=== PATIENT | male | born 1950 | race Caucasian/White ===

== ENCOUNTER 2016-05-15 08:03 | Emergency (ER) | payer OTHER ==
[~2016-05-15] VITALS: Ht 162.6 cm; Wt 68.5 kg
[~2016-05-15 08:03] MED LIST: CARI350T29 PO; IBUP-1542 PO; LISI20TA11 PO; LORA-441 PO; ONDA4TAB11 PO; ONDA4TAB8 PO; THIA100T10 PO
[2016-05-15 08:09] VITALS: Ht 162.6 cm; Wt 68.5 kg
[2016-05-15] MEDS ORDERED: ALPR0.5T PO (08:51)
--- NOTE | 2016-05-15 08:54 | ERD ---
ER Documentation Chief Complaint Date/Time DATE: 05/15/16 TIME: 08:53 Chief Complaint used meth yesterday and has anxiety HPI This is a 65-year-old male who says that he has anxiety long-standing is having anxiety attacks. The patient states that he does occasionally use methamphetamines. Says that his anxiety attacks or tremors and sense of impending doom and overwhelming feeling of smothering. He says he takes Xanax for these but he is out. No chest pain shortness of breath palpitations syncope headache dizziness ROS All systems reviewed and are negative except as per history of present illness. Medications Home Meds Active Scripts Alprazolam* (Xanax*) 0.5 Mg Tab, 0.5 MG PO TID, #20 TAB Prov:JOHANN ORTIZ DO 05/15/16 Ibuprofen* (Motrin*) 600 Mg Tab, 600 MG PO Q6H Y for PAIN AND OR ELEVATED TEMP, #30 TAB Prov:GORDY CORTES MD 04/22/16 Ondansetron (Zofran Odt) 4 Mg Tab.rapdis, 4 MG PO Q6, #10 Prov:SANGITA HINES DO 04/19/16 Lorazepam* (Ativan*) 0.5 Mg Tablet, 0.5 MG PO Q8, #5 TAB Prov:GAYATHRI VELASQUEZ PA-C 10/13/15 Reported Medications Carisoprodol* (Carisoprodol*) 350 Mg Tablet, 350 MG PO BID Y for MUSCLE SPASMS, TAB 04/19/16 Thiamine* (Thiamine*) 100 Mg Tablet, 100 MG PO DAILY, TAB 04/19/16 Lisinopril* (Lisinopril*) 20 Mg Tablet, 20 MG PO DAILY, TAB 08/17/14 Discontinued Scripts Ondansetron Hcl* (Zofran*) 4 Mg Tablet, 4 MG PO Q6H for NAUSEA AND/OR VOMITING, #10 TAB Prov:SANGITA HINES DO 04/19/16 Allergies Allergies: Coded Allergies: ketorolac (Verified Allergy, Unknown, 10/23/15) lidocaine (Verified Allergy, Unknown, HIVES, 10/23/15) phenobarbital (Verified Allergy, Unknown, 10/23/15) PMhx/Soc History of Surgery: No Anesthesia Reaction: No Hx Neurological Disorder: No Hx Respiratory Disorders: No Hx Cardiac Disorders: No Hx Psychiatric Problems: No Hx Miscellaneous Medical Probl: No Hx Alcohol Use: Yes Hx Substance Use: Yes (meth x1week relapse) Hx Tobacco Use: Yes (1pack/day) FmHx Family History: No coronary disease Physical Exam Vitals Vital Signs Date Time Temp Pulse Resp B/P Pulse Ox O2 Delivery O2 Flow Rate FiO2 05/15/16 08:09 95.2 91 18 151/102 98 Physical Exam Const: Well-developed, well-nourished Head: Atraumatic, normocephalic Eyes: Normal Conjunctiva, PERRLA, EOMI, normal sclera, no nystagmus ENT: Normal External Ears, Nose and Mouth, moist mucus membranes. Neck: Full range of motion. No meningismus, no lymphadenopathy. Resp: Clear to auscultation bilaterally, no wheezing, rhonchi, rales Cardio: Regular rate and rhythm, no murmurs, S1 S2 present Abd: Soft, non tender x 4, non distended. Normal bowel sounds, no guarding or rebound, no pulsitile abdominal masses or bruits Skin: No petechiae or rashes, no ecchymosis , no maculopapular rash Back: No midline or flank tenderness Ext: No cyanosis, or edema, FROM x 4, normal inspection, neurovascularly intact x 4 Neur: Awake and alert, STR 5/5 x 4, sensation intact x 4, no focal findings, cerebellum intact Psych: Normal Mood and Affect Results 24 hrs Current Medications Medications (Trade) Dose Ordered Sig/Tamika Route PRN Reason Start Time Stop Time Status Last Admin Dose Admin Alprazolam (Xanax) 0.5 mg ONCE ONCE PO 05/15/16 09:00 05/15/16 09:01 Departure Diagnosis: Primary Impression: Anxiety Condition: Stable Patient Instructions: Anxiety Reaction Referrals: CARA EDEN (PCP) JOHANN ORTIZ DO May 15, 2016 08:54
[2016-05-15] MEDS ORDERED: ALPRAZOLAM 0.25 MG TAB PO ONE (09:00)
[2016-05-15 09:45] VITALS: BP 125/79; PULSE 71; RESP 18; TEMP 98.6
== END 2016-05-15 10:08 | disposition home or self-care (01) ==
LOC: E/R 08:03
DX: F41.9 Anxiety disorder, unspecified (principal); F17.210 Nicotine dependence, cigarettes, uncomplicated
CPT/HCPCS: Z7502; Z7610; 99283

== ENCOUNTER 2016-05-29 11:35 | Emergency (ER) | payer OTHER ==
[~2016-05-29] VITALS: Ht 157.5 cm; Wt 76.1 kg
[~2016-05-29 11:35] MED LIST changes: +ALPR0.5T PO; -ONDA4TAB8 PO
[2016-05-29 14:23] VITALS: Ht 157.5 cm; Wt 76.1 kg
--- NOTE | 2016-05-29 18:33 | ERD ---
ER Documentation Chief Complaint Date/Time DATE: 05/29/16 TIME: 18:32 Chief Complaint RELAPSED ON DRUG AND ALCOHOL, HAS NECK PAIN, UNSURE THE HELP HE WANTS HPI Patient is a 65-year-old male with drug abuse and hypertension who presents with neck pain. He said that he has been clean from methamphetamine for the past 3 days. He has muscle spasm in his neck. He has neck pain. He said this is been there for the past 3 days as well. He has not taken any medicines as of yet. Upon review of old medical records the patient has multiple visits to the ER for similar type complaints. He is requesting Ativan for his neck stiffness. ROS All systems reviewed and are negative except as per history of present illness. Medications Home Meds Active Scripts Alprazolam* (Xanax*) 0.5 Mg Tab, 0.5 MG PO TID, #20 TAB Prov:JOHANN ORTIZ DO 05/15/16 Ibuprofen* (Motrin*) 600 Mg Tab, 600 MG PO Q6H Y for PAIN AND OR ELEVATED TEMP, #30 TAB Prov:GORDY CORTES MD 04/22/16 Ondansetron (Zofran Odt) 4 Mg Tab.rapdis, 4 MG PO Q6, #10 Prov:SANGITA HINES DO 04/19/16 Lorazepam* (Ativan*) 0.5 Mg Tablet, 0.5 MG PO Q8, #5 TAB Prov:GAYATHRI VELASQUEZ PA-C 10/13/15 Reported Medications Carisoprodol* (Carisoprodol*) 350 Mg Tablet, 350 MG PO BID Y for MUSCLE SPASMS, TAB 04/19/16 Thiamine* (Thiamine*) 100 Mg Tablet, 100 MG PO DAILY, TAB 04/19/16 Lisinopril* (Lisinopril*) 20 Mg Tablet, 20 MG PO DAILY, TAB 08/17/14 Allergies Allergies: Coded Allergies: ketorolac (Verified Allergy, Unknown, 10/23/15) lidocaine (Verified Allergy, Unknown, HIVES, 10/23/15) phenobarbital (Verified Allergy, Unknown, 10/23/15) PMhx/Soc Medical and Surgical Hx: pt denies Medical Hx, pt denies Surgical Hx History of Surgery: No Anesthesia Reaction: No Hx Neurological Disorder: No Hx Respiratory Disorders: No Hx Cardiac Disorders: No Hx Psychiatric Problems: No Hx Miscellaneous Medical Probl: No Hx Alcohol Use: Yes Hx Substance Use: Yes (meth x1week relapse) Hx Tobacco Use: Yes (1pack/day) Smoking Status: Never smoker FmHx Family History: No diabetes Physical Exam Vitals Vital Signs Date Time Temp Pulse Resp B/P Pulse Ox O2 Delivery O2 Flow Rate FiO2 05/29/16 14:23 98.1 94 18 133/91 99 Physical Exam Const: No acute distress Head: Atraumatic Eyes: Normal Conjunctiva ENT: Normal External Ears, Nose and Mouth. Neck: Pain over the right strap muscles of the neck, no midline tenderness to palpation Resp: Clear to auscultation bilaterally Cardio: Regular rate and rhythm, no murmurs Abd: Soft, non tender, non distended. Normal bowel sounds Skin: No petechiae or rashes Back: No midline or flank tenderness Ext: No cyanosis, or edema Neur: Awake and alert Psych: Normal Mood and Affect Procedures/MDM Patient is a 65-year-old male who presents with acute on chronic pain. He has strap muscle pain of the neck and I doubt meningismus or other serious neck pain. I believe the patient is experiencing drug-seeking behavior as well she is requesting benzodiazepine medicines. I offered him ibuprofen which he refused. I will not give the patient any narcotic medicines or benzodiazepine medicines. The patient will be discharged and can follow-up with his primary doctor tomorrow. He can return for any worsening symptoms. Departure Diagnosis: Primary Impression: Neck pain Condition: Fair Patient Instructions: Neck Pain, No Trauma Additional Instructions: Call your primary care doctor TOMORROW for an appointment during the next 1-2 days.See the doctor sooner or return here if your condition worsens before your appointment time. GORDY CORTSE MD May 29, 2016 18:33
== END 2016-05-29 17:56 | disposition home or self-care (01) ==
LOC: E/R 11:35
DX: M54.2 Cervicalgia (principal); I10 Essential (primary) hypertension; F17.210 Nicotine dependence, cigarettes, uncomplicated
CPT/HCPCS: 99282

== ENCOUNTER 2016-07-31 21:25 | Emergency (ER) | payer SELFPAY | END 2016-07-31 22:30 | disposition left against medical advice (07) | LOC: E/R 21:25 | DX: Z53.21 Procedure and treatment not carried out due to patient leaving prior to being seen by health care provider (principal) ==

== ENCOUNTER 2016-08-01 02:51 | Emergency (ER) | payer SELFPAY ==
[~2016-08-01] VITALS: Ht 170.2 cm; Wt 63.5 kg
[2016-08-01 02:55] VITALS: Ht 170.2 cm; Wt 63.5 kg
== END 2016-08-01 07:43 | disposition left against medical advice (07) ==
LOC: E/R 02:51
DX: Z53.21 Procedure and treatment not carried out due to patient leaving prior to being seen by health care provider (principal)

== ENCOUNTER 2016-09-20 07:18 | Emergency (ER) | payer OTHER ==
[~2016-09-20] VITALS: Wt 71.5 kg
[2016-09-20] MEDS ORDERED: LORAZEPAM 2 MG INJ IV ONE (07:30)
[2016-09-20] MEDS ORDERED: OLANZAPINE (ODT) 5 MG TAB ODT ONE (12:30)
--- NOTE | 2016-09-20 13:33 | ERD ---
ER Documentation Chief Complaint Date/Time DATE: 09/20/16 TIME: 13:29 Chief Complaint AGITATION AFTER USING METHAMPHETAMINES TODAY. NO CP OR SOB STATED HPI 66-year-old male with a history of methamphetamine abuse presenting with agitation after using methamphetamine today. He denies any shortness of breath , chest pain, headache, vision disturbance, fever, chills. ROS All systems reviewed and are negative except as per history of present illness. Medications Home Meds Discontinued Reported Medications Carisoprodol* (Carisoprodol*) 350 Mg Tablet, 350 MG PO BID Y for MUSCLE SPASMS, TAB 04/19/16 Thiamine* (Thiamine*) 100 Mg Tablet, 100 MG PO DAILY, TAB 04/19/16 Lisinopril* (Lisinopril*) 20 Mg Tablet, 20 MG PO DAILY, TAB 08/17/14 Discontinued Scripts Alprazolam* (Xanax*) 0.5 Mg Tab, 0.5 MG PO TID, #20 TAB Prov:JOHANN ORTIZ DO 05/15/16 Ibuprofen* (Motrin*) 600 Mg Tab, 600 MG PO Q6H Y for PAIN AND OR ELEVATED TEMP, #30 TAB Prov:GORDY CORTES MD 04/22/16 Ondansetron (Zofran Odt) 4 Mg Tab.rapdis, 4 MG PO Q6, #10 Prov:SANGITA HINES DO 04/19/16 Lorazepam* (Ativan*) 0.5 Mg Tablet, 0.5 MG PO Q8, #5 TAB Prov:GAYATHRI VELASQUEZ PA-C 10/13/15 Allergies Allergies: Coded Allergies: ketorolac (Verified Allergy, Unknown, 09/20/16) lidocaine (Verified Allergy, Unknown, HIVES, 09/20/16) phenobarbital (Verified Allergy, Unknown, 09/20/16) PMhx/Soc History of Surgery: No Anesthesia Reaction: No Hx Neurological Disorder: No Hx Respiratory Disorders: No Hx Cardiac Disorders: Yes (HTN) Hx Psychiatric Problems: No Hx Miscellaneous Medical Probl: No Hx Alcohol Use: No Hx Substance Use: Yes (meth last night) Hx Tobacco Use: Yes Smoking Status: Smoker,current status unk FmHx Family History: No diabetes Physical Exam Vitals Vital Signs Date Time Temp Pulse Resp B/P Pulse Ox O2 Delivery O2 Flow Rate FiO2 09/20/16 07:31 104 18 123/81 96 Room Air 09/20/16 07:22 98.7 91 24 128/92 98 Physical Exam Const: Cannot stop talking, no distress Head: Atraumatic Eyes: Normal Conjunctiva ENT: Normal External Ears, Nose and Mouth. Neck: Full range of motion. No meningismus. Resp: Clear to auscultation bilaterally Cardio: Regular rate and rhythm, no murmurs Abd: Soft, non tender, non distended. Normal bowel sounds Skin: No petechiae or rashes Back: No midline or flank tenderness Ext: No cyanosis, or edema Neur: Awake and alert Psych: Agitated, poor insight, no suicidal or homicidal ideation, no hallucinations Results 24 hrs Current Medications Medications (Trade) Dose Ordered Sig/Tamika Route PRN Reason Start Time Stop Time Status Last Admin Dose Admin Lorazepam (Ativan) 1 mg ONCE ONCE IV 09/20/16 07:30 09/20/16 07:31 DC 09/20/16 07:31 Olanzapine (Zyprexa Zydis) 5 mg ONCE ONCE ODT 09/20/16 12:30 09/20/16 12:31 DC 09/20/16 12:48 Procedures/MDM Patient presented with altered mental status. Vitals are within normal limits. Patient maintaining airway. Based on EMS report and exam, patients symptoms and hyperactivity are likely related to methamphetamine intoxication. Patient has a history of multiple visits similar to this.. I have a low suspicion for serious metabolic or electrolyte derangement, intracranial hemorrhage, acute infectious process, meningitis/encephalitis, or CVA. Ativan 1 mg IV was given. Patient was observed for several hours in the ER with serial examinations and mental status evaluations. The patients symptoms have not completely resolved and not yet safe for discharge.. Patient will continue to be observed in the department for improvement of symptoms and mental status. Patient will be signed out to the oncoming ED physician, who will reevaluate the patient and decide on final disposition. Departure Diagnosis: Primary Impression: Methamphetamine abuse Additional Impression: Restlessness and agitation DIAMOND QURESHI MD September 20, 2016 13:33
[2016-09-20 15:07] VITALS: BP 145/90; PULSE 71; RESP 17
== END 2016-09-20 15:11 | disposition home or self-care (01) ==
LOC: E/R 07:18
DX: F15.10 Other stimulant abuse, uncomplicated (principal); I10 Essential (primary) hypertension; R40.2142 Coma scale, eyes open, spontaneous, at arrival to emergency department; R40.2252 Coma scale, best verbal response, oriented, at arrival to emergency department; R40.2362 Coma scale, best motor response, obeys commands, at arrival to emergency department; Z87.891 Personal history of nicotine dependence
CPT/HCPCS: J2060; Z7610; 96374

== ENCOUNTER 2018-05-05 01:11 | Emergency (ER) | payer OTHER, MEDICARE ==
[~2018-05-05] VITALS: Ht 170.2 cm; Wt 54.9 kg
[2018-05-05 01:14] VITALS: BP 174/85; PULSE 72; RESP 18; Ht 170.2 cm; Wt 54.9 kg
[2018-05-05] MEDS ORDERED: traMADol 50 MG TAB PO ONE (02:00)
--- NOTE | 2018-05-05 02:00 | ERD ---
ER Documentation Chief Complaint Chief Complaint generalize body pain/weakness HPI This is a 67-year-old male here with complaints of chronic pain exacerbation. History of methamphetamine abuse. Reviewing EMR patient's been here multiple for similar complaints. Denies suicidal homicidal ideation. Denies auditory or visual hallucinations. ROS All systems reviewed and are negative except as per history of present illness. Medications Home Meds No Active Prescriptions or Reported Meds Allergies Allergies: Coded Allergies: ketorolac (Verified Allergy, Unknown, 09/20/16) lidocaine (Verified Allergy, Unknown, HIVES, 09/20/16) phenobarbital (Verified Allergy, Unknown, 09/20/16) PMhx/Soc History of Surgery: No Anesthesia Reaction: No Hx Neurological Disorder: No Hx Respiratory Disorders: No Hx Cardiac Disorders: Yes (HTN) Hx Psychiatric Problems: No Hx Miscellaneous Medical Probl: No Hx Alcohol Use: No Hx Substance Use: Yes (meth last night) Hx Tobacco Use: Yes Physical Exam Vitals Vital Signs Date Temp Pulse Resp B/P (MAP) Pulse Ox O2 O2 Flow FiO2 Time Delivery Rate 05/05/18 97.2 72 18 174/85 99 01:14 (114) Physical Exam Const: No acute distress Head: Atraumatic Eyes: Normal Conjunctiva ENT: Normal External Ears, Nose and Mouth. Neck: Full range of motion. No meningismus. Resp: Clear to auscultation bilaterally Cardio: Regular rate and rhythm, no murmurs Abd: Soft, non tender, non distended. Normal bowel sounds Skin: No petechiae or rashes Back: No midline or flank tenderness Ext: No cyanosis, or edema Neur: Awake and alert Psych: Normal Mood and Affect Results 24 hrs Current Medications Medications Dose Sig/Tamika Start Time Status Last (Trade) Ordered Route PRN Stop Time Admin Dose Reason Admin Tramadol 50 mg ONCE ONCE 05/05/18 HCl PO 02:00 05/05/18 (Ultram) 02:01 Procedures/MDM Medical decision make: Patient here with essentially chronic pain. At this point clinically stable will be discharged home Departure Diagnosis: Primary Impression: Pain Condition: Stable Patient Instructions: Chronic Pain ROXY BELLAMY May 05, 2018 02:00
== END 2018-05-05 02:15 | disposition home or self-care (01) ==
LOC: E/R 01:11
DX: R52 Pain, unspecified (principal); I10 Essential (primary) hypertension; Z87.891 Personal history of nicotine dependence
CPT/HCPCS: Z7502; Z7610; 99282

== ENCOUNTER 2018-05-23 14:49 | Emergency (ER) | payer OTHER ==
[~2018-05-23] VITALS: Ht 157.5 cm; Wt 50.0 kg
--- NOTE | 2018-05-23 14:55 | ERD ---
ER Documentation Chief Complaint Chief Complaint Agitation HPI This is a 67-year-old gentleman who presents to the emergency room via EMS for evaluation. The patient states that he may have used methamphetamine over the last several days. The patient cannot clearly articulate why he called 911. The patient denies headache or chest pain. He refuses to answer any further question, quickly becomes upset after I tried to shake his hand and states that he would like to leave the emergency department. ROS All systems reviewed and are negative except as per history of present illness. Medications Home Meds No Active Prescriptions or Reported Meds Allergies Allergies: Coded Allergies: ketorolac (Verified Allergy, Unknown, 09/20/16) lidocaine (Verified Allergy, Unknown, HIVES, 09/20/16) phenobarbital (Verified Allergy, Unknown, 09/20/16) PMhx/Soc History of Surgery: No Anesthesia Reaction: No Hx Neurological Disorder: No Hx Respiratory Disorders: No Hx Cardiac Disorders: Yes (HTN) Hx Psychiatric Problems: No Hx Miscellaneous Medical Probl: No Hx Alcohol Use: No Hx Substance Use: Yes (meth ) Hx Tobacco Use: Yes FmHx Family History: No diabetes Physical Exam Vitals Vital Signs Date Temp Pulse Resp B/P (MAP) Pulse Ox O2 O2 Flow FiO2 Time Delivery Rate 05/23/18 98.1 78 18 143/68 98 14:56 (93) Physical Exam General: Moving around, ambulatory Head: Normocephalic, atraumatic. Eyes: EOM intact ENT: Moist mucous membranes Neck: Full ROM Respiratory: No respiratory distress Cardiovascular: Well perfused distally Abdominal: Nondistended : Deferred MSK: No edema, no unilateral swelling, 5/5 strength Neurologic: Alert and oriented, moving all extremities, normal speech, steady gait Skin: No rash Psych: Anxious mood, denies suicidal ideation Procedures/MDM The patient rapidly became upset when I tried to shake his hand during our encounter. He states that he wants to leave the emergency room and is ambulatory. At this point the patient does not exhibit any signs or symptoms of danger to himself or others. The patient has had a medical screening examination and exhibits no signs of acute emergent condition. The patient has capacity. He is ambulatory, able to navigate the community and refusing any further intervention or social media director. Of note I am familiar with this patient had a different hospital. The patient has 42 visits to local emergency rooms in the past 12-month for all similar related visits. The patient is at his baseline. Departure Diagnosis: Primary Impression: Encounter for medical screening examination Condition: DAVID Castro MD May 23, 2018 14:55
[2018-05-23 14:56] VITALS: BP 143/68; PULSE 78; RESP 18; Ht 157.5 cm; Wt 50.0 kg
== END 2018-05-23 15:49 | disposition left against medical advice (07) ==
LOC: E/R 14:49
DX: Z00.00 Encounter for general adult medical examination without abnormal findings (principal); I10 Essential (primary) hypertension; Z87.891 Personal history of nicotine dependence
CPT/HCPCS: 99283

== ENCOUNTER 2018-11-15 06:24 | Emergency (ER) | payer BC, OTHER ==
[~2018-11-15] VITALS: Ht 165.1 cm; Wt 70.0 kg
[2018-11-15 06:35] VITALS: PULSE 97; RESP 24; Ht 165.1 cm; Wt 70.0 kg
--- NOTE | 2018-11-15 06:55 | ERD ---
ER Documentation Chief Complaint Chief Complaint Pt. here and needs help to get off "crystal meth" nausea, SOB HPI This 68-year-old male who presents for evaluation of relapse, after having been off crystal meth. Patient states that he used earlier this morning, and now feels agitated, and uncomfortable. Endorses nausea, and a feeling of anxiousness. ROS All systems reviewed and are negative except as per history of present illness. Medications Home Meds No Active Prescriptions or Reported Meds Allergies Allergies: Coded Allergies: ketorolac (Verified Allergy, Unknown, 11/15/18) lidocaine (Verified Allergy, Unknown, HIVES, 11/15/18) phenobarbital (Verified Allergy, Unknown, 11/15/18) PMhx/Soc History of Surgery: No Anesthesia Reaction: No Hx Neurological Disorder: No Hx Respiratory Disorders: No Hx Cardiac Disorders: Yes (HTN) Hx Psychiatric Problems: No Hx Miscellaneous Medical Probl: No Hx Alcohol Use: No Hx Substance Use: Yes (meth ) Hx Tobacco Use: Yes Physical Exam Vitals Vital Signs Date Temp Pulse Resp B/P (MAP) Pulse Ox O2 O2 Flow FiO2 Time Delivery Rate 11/15/18 129/71 12:37 (90) 11/15/18 139/87 09:41 (104) 11/15/18 89 33 123/100 100 Room Air 07:22 (108) 11/15/18 97.0 97 24 139/94 97 06:35 (109) Physical Exam Const: Patient appears agitated, speech is pressured, disheveled appearing Head: Atraumatic Eyes: Normal Conjunctiva ENT: Normal External Ears, Nose and Mouth. Neck: Full range of motion. No meningismus. Resp: Clear to auscultation bilaterally Cardio: Regular rate and rhythm, no murmurs Abd: Soft, non tender, non distended. Normal bowel sounds Skin: No petechiae or rashes Back: No midline or flank tenderness Ext: No cyanosis, or edema Neur: Awake and alert Psych: Normal Mood and Affect, no suicidal homicidal ideation Results 24 hrs Current Medications Medications Dose Sig/Tamika Start Time Status Last (Trade) Ordered Route PRN Stop Time Admin Dose Reason Admin Lorazepam 1 mg ONCE ONCE 11/15/18 DC 11/15/18 (Ativan) IV 07:00 07:05 11/15/18 07:01 Procedures/MDM 68-year-old male presents for acute methamphetamine intoxication, he appears mil dly agitated, will treat with benzodiazepines and then reassess. 1:26 PM: Patient reassessed, he is now medically sober, he was evaluated by social security benefits interviewer, stable for discharge home, he has a steady gait, and appears in no distress. Departure Diagnosis: Primary Impression: Methamphetamine abuse Condition: Stable PHIL MIRAMONTES MD Nov 15, 2018 06:55
[2018-11-15] MEDS ORDERED: LORAZEPAM 2 MG INJ IV ONE (07:00)
[2018-11-15 12:37] VITALS: BP 129/71
== END 2018-11-15 14:20 | disposition home or self-care (01) ==
LOC: E/R 06:24
DX: F15.10 Other stimulant abuse, uncomplicated (principal); I10 Essential (primary) hypertension; Z87.891 Personal history of nicotine dependence
CPT/HCPCS: 93005; 96374; 99284; J2060

== ENCOUNTER 2018-12-10 07:56 | Day surgery (SDC) | payer BC, OTHER ==
[~2018-12-10] VITALS: Ht 170.2 cm; Wt 71.3 kg
[~2018-12-10 07:56] MED LIST changes: -ALPR0.5T PO; -CARI350T29 PO; +GABA300C16 PO; -IBUP-1542 PO; +LISI-471 PO; -LISI20TA11 PO; -LORA-441 PO; +METH500T PO; -ONDA4TAB11 PO; -THIA100T10 PO
--- NOTE | 2018-12-10 08:35 | PREAC ---
Date/Time of Note Date/Time of Note DATE: 12/10/18 TIME: 08:34 Anesthesia Eval and Record Evaluation Time Pre-Procedure Interview DATE: 12/10/18 TIME: 08:34 Age 68 Sex male NPO: 8 hrs Preoperative diagnosis screening Planned procedure colonoscopy Past Medical History Past Medical History: Includes Cardio: HTN Surgery & Anesthesia Issues No known issue Meds Anticoagulation: No Beta Wilma within 24 hr: No Reason Beta Wilma not given: Pt. not on B-Wilma No Active Prescriptions or Reported Meds Meds reviewed: Yes Allergies Coded Allergies: ketorolac (Verified Allergy, Unknown, 11/15/18) lidocaine (Verified Allergy, Unknown, HIVES, 11/15/18) phenobarbital (Verified Allergy, Unknown, 11/15/18) Allergies Reviewed: Yes Labs/Studies Labs Reviewed: Reviewed by anesthesiologist test: N/A Studies: ECG (n/a), CXR (n/a) Pre-procedure Exam Airway: Adequate mouth opening Mallampati: Mallampati I Teeth: Abnormal (denture) Lung: Normal Heart: Normal ASA Physical Status ASA physical status: 2 Emergency: None Planned Anesthetic General/MAC: MAC Planned Pain Management Parenteral pain med Pre-operative Attestations Prior to commencing anesthesia and surgery, the patient was re-evaluated, there was verification of: *The patient's identity *The results of appropriate recent lab work and preoperative vital signs *The above evaluation not changing prior to induction *Anesthetic plan, risk benefits, alternative and complications discussed with patient/family; questions answered; patient/family understands, accepts and wishes to proceed. CELIA MAYER MD Dec 10, 2018 08:35
[2018-12-10 08:41] VITALS: Ht 170.2 cm; Wt 71.3 kg
[2018-12-10 08:56] VITALS: BP 154/74; PULSE 66; RESP 20
[2018-12-10] MEDS ORDERED: PROPOFOL 20 ML ONE ×2 (09:35→10:17)
[2018-12-10 10:22] VITALS: BP 138/74; RESP 18
--- NOTE | 2018-12-11 09:53 | PAC ---
Date/Time of Note Date/Time of Note DATE: 12/11/18 TIME: 09:52 Post-Anesthesia Notes Post-Anesthesia Note Last documented vital signs Vital Signs Date Temp Pulse Resp B/P (MAP) Pulse Ox O2 O2 Flow FiO2 Time Delivery Rate 12/10/18 18 138/74 96 10:22 (95) 12/10/18 98.5 66 Room Air 08:56 Activity: WNL Respiratory function: WNL Cardiovascular function: WNL Mental status: Baseline Pain reasonably controlled: Yes Hydration appropriate: Yes Nausea/Vomiting absent: No CELIA MAYER MD Dec 11, 2018 09:53
== END 2018-12-10 14:29 | disposition home or self-care (01) ==
LOC: GIL 07:56
PROVIDERS: ATTEND Internal Medicine Gastroenterology
DX: Z12.11 Encounter for screening for malignant neoplasm of colon (principal); K64.8 Other hemorrhoids; I10 Essential (primary) hypertension